=== PATIENT | male | born 1990 | race Two or more races ===

== ENCOUNTER 2020-06-07 00:16 | Emergency (ER) | payer OTHER ==
[~2020-06-07] VITALS: Ht 160 cm; Wt 59.0 kg
[2020-06-07] MEDS ORDERED: METOPROLOL TAR100 M1 ORAL (00:28)
[2020-06-07] MEDS ORDERED: DOCUSATE SODIU100 MG ORAL (00:28)
[2020-06-07] MEDS ORDERED: ACETAMINOP160 MG/5 M ORAL (00:28)
[2020-06-07] MEDS ORDERED: MILK OF MA2400 MG/10 ORAL (00:28)
[2020-06-07] MEDS ORDERED: ALBUTEROL2.5 MG/3 M INH (00:28)
[2020-06-07] MEDS ORDERED: LEVETIRACE500 MG/51 PO (00:28)
[2020-06-07] MEDS ORDERED: TERAZOSIN HCL1 MG ORAL (00:28)
[2020-06-07] MEDS ORDERED: BACLOFEN10 MG ORAL (00:28)
[2020-06-07] MEDS ORDERED: BISACODYL10 M1 RC (00:28)
--- NOTE | 2020-06-07 00:30 | NUR ---
ED Nurse Note: Recieved opt BIBA from [facility] with c/o seizures, witnessed by staff and lasting about 5 min, pt has hx of epilepsy, pt arrived awake and alert, pt is [id number] but does understand and follows commands as much as possible, nods head yes and no and is appropriate, pt nods no to pain, no s/s of pain noted, pt is in like contracted position, moves a little, pt immediately placed on cardiac monitoring, MD at bedside, will resume care as ordered and closely monitor, side rails immediately padded and pt placed on seizure precautions.
--- NOTE | 2020-06-07 00:41 | Emergency Room Report ---
History of Present Illness General Chief Complaint: Seizure Source: Medical Record Present Illness HPI This a 29-year-old male from a custodial. He has a history of seizure and encephalopathy. He also has a feeding tube. He presents with complaint of seizure. Onset tonight. Lasted about 5 minutes per EMS. There is no reported fever chills but no nausea no vomiting. Nothing made it better. Nothing made it worse. Unable to get any history from this patient because he is nonverbal. Per EMS, he is at baseline. 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 COVID-19 Screening: Negative COVID-19 COVID-19 Testing Source: [facility] Patient History Past Medical History: see triage record, old chart reviewed Past Surgical History: other Pertinent Family History: none Social History: Denies: smoking Immunizations: other Reviewed Nursing Documentation: PMH: Agreed; PSxH: Agreed Nursing Documentation-PMH Past Medical History: No History, Except For Hx Seizures: Yes - EPILEPSY Review of Systems Neurological: Reports: seizure All Other Systems: limited - Is nonverbal Physical Exam Vital Signs Date Time Temp Pulse Resp B/P (MAP) Pulse Ox O2 Delivery O2 Flow Rate FiO2 06/07/20 00:14 98.4 98 15 140/92 (108) 100 Room Air Vitals normal Sp02 EP Interpretation: reviewed, normal General Appearance: cachetic, Chronically Ill Head: normocephalic, atraumatic Eyes: bilateral eye EOMI ENT: hearing grossly normal, normal pharynx Neck: full range of motion, supple, no meningismus Respiratory: chest non-tender, lungs clear, normal breath sounds Cardiovascular #1: regular rate, rhythm, no murmur, tachycardia - 110-120s Gastrointestinal: normal bowel sounds, non tender, no mass, no organomegaly, no bruit, non-distended, other - Feeding tube Musculoskeletal: back normal, other - Severely contracted Psychiatric: mood/affect normal Medical Decision Making Diagnostic Impression: Primary Impression: Epileptic seizure, generalized Additional Impression: UTI (urinary tract infection) Qualified Codes: N30.00 - Acute cystitis without hematuria ER Course Patient presents with breakthrough seizure. Probably secondary to infection from UTI. Antibiotics given here. Dose of Keppra given here. Labs unremarkable except for elevated lactic acid. This may be secondary to seizure activity. His heart rate is now in the 90s. Vitals are otherwise stable. He is back to baseline. He is able to follow commands and able to communicate. EKG Diagnostic Results Troponin ordered: Yes Rate: tachycardiac Rhythm: NSR ST Segments: no acute changes Rhythm Strip Diag. Results EP Interpretation: yes Rate: 100 Rhythm: NSR, no PVC's, no ectopy Chest X-Ray Diagnostic Results Chest X-Ray Diagnostic Results : Chest X-Ray Ordered: Yes # of Views/Limited/Complete: 1 View Indication: Chest Pain EP Interpretation: Yes Interpretation: no consolidation, no effusion, no pneumothorax, no acute cardiopulmonary disease Impression: No acute disease Electronically Signed by: Aki Muñoz MD Last Vital Signs Date Time Temp Pulse Resp B/P (MAP) Pulse Ox O2 Delivery O2 Flow Rate FiO2 06/07/20 00:14 98.4 98 15 140/92 (108) 100 Room Air Status: improved Disposition: SNF Condition: Stable Scripts Cephalexin* (KEFLEX*) 500 Mg Capsule 500 MG ORAL TID, #21 CAP Prov: Aki Muñoz MD 06/07/20 Referrals: Annamaria Tamayo MD (PCP) Patient Instructions: Seizure, Adult Additional Instructions: Follow-up with your doctor in 7 days. Return if symptoms worsen. Aki Muñoz MD Jun 07, 2020 00:41
[2020-06-07] MEDS ORDERED: levETIRAcetam 500mg/NS100ml 100 ML IVPB ONE (00:45)
[2020-06-07] MEDS ORDERED: Acetaminophen 650 MG SUPP RECTAL ONE (00:45)
[2020-06-07 01:09] LABS: BASOPHILS % (AUTO) 1.1 % (0.0-2.0); EOSINOPHILS % (AUTO) 1.7 % (0.0-3.0); HEMATOCRIT 48.4 % (42.0-52.0); HEMOGLOBIN 16.9 G/DL (14.2-18.0); LYMPHOCYTES % (AUTO) 17.2 % (20.0-45.0); MEAN CORPUSCULAR VOLUME 90 FL (80-99); MONOCYTES % (AUTO) 4.8 % (1.0-10.0); NEUTROPHILS % (AUTO) 75.3 % (45.0-75.0); PLATELET COUNT 206 K/UL (150-450); RED BLOOD COUNT 5.38 M/UL (4.70-6.10); WHITE BLOOD COUNT 7.1 K/UL (4.8-10.8)
[2020-06-07 01:15] LABS: ANION GAP 10 mmol/L (5-15); BLOOD UREA NITROGEN 13 mg/dL (7-18); CARBON DIOXIDE 26 MMOL/L (21-32); CHLORIDE 103 MMOL/L (98-107); POTASSIUM 4.3 MMOL/L (3.5-5.1); SODIUM 139 MMOL/L (136-145)
--- NOTE | 2020-06-07 01:20 | NUR ---
ED Nurse Note: Pt straight cath for urine sample, pt fought stsff, required 3 stsff to collect, pt was straight cath per md, no abebe, v/s remain stable, no seizure activity noted, IV fluids infusing, repeat lactic done, will continue to monitor.
[2020-06-07 01:28] LABS: ALANINE AMINOTRANSFERASE 60 U/L (12-78); ALBUMIN 4.1 G/DL (3.4-5.0); ALBUMIN/GLOBULIN RATIO 1.2 (1.0-2.7); ALKALINE PHOSPHATASE 125 U/L (46-116); ASPARTATE AMINO TRANSFERASE 22 U/L (15-37); BILIRUBIN,TOTAL 0.4 MG/DL (0.2-1.0); CKMB 1.1 NG/ML (0.0-3.6); CREATINE KINASE 89 U/L (26-308)
--- NOTE | 2020-06-07 02:19 | NUR ---
informed aysha alonso that patient will be going back to facility
[2020-06-07 02:26] LABS: BILIRUBIN, URINE NEGATIVE (NEGATIVE); GLUCOSE, URINE (UA) NEGATIVE (NEGATIVE); KETONES,URINE 1+ (NEGATIVE); LEUKOCYTE ESTERASE ,URINE 3+ (NEGATIVE); NITRITE,URINE POSITIVE (NEGATIVE); PH,URINE 7 (4.5-8.0); PROTEIN,URINE 3+ (NEGATIVE); UROBILINOGEN,URINE NORMAL MG/DL (0.0-1.0)
[2020-06-07 02:39] LABS: APPEARANCE,URINE CLOUDY; COLOR,URINE YELLOW
[2020-06-07] MEDS ORDERED: cefTRIAXone 1 GM in NS 55 ML IVPB ONE (02:45)
[2020-06-07] MEDS ORDERED: CEPHALEXIN500 MG ORAL (03:15)
--- NOTE | 2020-06-07 03:30 | NUR ---
ED Nurse Note: Pt completed fluids and IV antibiotics, tolerated well, no s/s of adverse reaction noted from antibiotics, fluids completed, no seizure activity or pain, v/s stable, will continue to closely monitor and prepare for pt disposition.
--- NOTE | 2020-06-07 04:29 | NUR ---
ED Nurse Note: Placed call to SNF, report given to SARITHA Felton at [facility] in regards to pt returning and having prescription with him.
[2020-06-07 04:30] VITALS: BP 123/98
--- NOTE | 2020-06-07 04:30 | NUR ---
ED Nurse Note: Pt waiting for disposition back to facility, suddennly pt had increase in heart rate, b/p wnl, meds ordered and given, will continue to monitor while waiting for pt transport.
[2020-06-07] MEDS ORDERED: Labetalol 5mg/ml 20ml vial IV ONE (04:45)
[2020-06-07 05:20] VITALS: BP 105/73
--- NOTE | 2020-06-07 05:20 | NUR ---
ER DISCHARGE NOTE: Patient is cleared to be discharged per ERMD, pt is aox4, on room air, with stable vital signs. ambulance personell was given discharge paperwork, spoke with Purnima, receiving nurse from [facility] and informed of dc instructions and prescriptions. belongings sent with patient to facility. ID band and IV line removed prior to discharge. patient is leaving with [facility].
--- NOTE | 2020-06-07 15:44 | Diagnostic Imaging Report ---
Indication: Reason For Exam: SOB Technique: Single AP view of the chest. Comparison: None. Findings: The cardiomediastinal silhouette is within normal limits. There is no focal consolidation, pneumothorax or pleural effusion. Osseous structures demonstrate no acute abnormality. Right-sided ventricular shunt is noted. IMPRESSION: No radiographic evidence of acute cardiopulmonary process.
== END 2020-06-07 05:15 ==
LOC: EDBD 00:16 → EMR 00:33
DX: G40.409 Other generalized epilepsy and epileptic syndromes, not intractable, without status epilepticus (principal); N30.00 Acute cystitis without hematuria; Z93.1 Gastrostomy status
CPT/HCPCS: 36415; 71045; 80053; 81003; 82550; 82553; 83605; 84484; 85025; 87040; 87086; 87181; 93005; 96361; 96365; 96375; J0696; J1953; J7030; Z7502; 99284